=== PATIENT | male | born 1985 | race Caucasian/White ===

== ENCOUNTER 2016-10-13 03:19 | Emergency (ER) | payer OTHER ==
[~2016-10-13] VITALS: Ht 167.6 cm; Wt 96.0 kg
[~2016-10-13 03:19] MED LIST: CLEOCIN300 MG PO; LANSOPRAZOLE30 MG; NOHOMEMEDS; PREDNISONE50 MG PO; ZANTAC150 MG PO; ZYRTEC10 M1 PO
[2016-10-13] MEDS ORDERED: INDOCIN50 MG PO (04:50)
[2016-10-13 04:57] VITALS: BP 137/86
== END 2016-10-13 05:00 | disposition home or self-care (01) ==
LOC: EME 03:19
DX: S63.612A Unspecified sprain of right middle finger, initial encounter (principal); S63.502A Unspecified sprain of left wrist, initial encounter; V18.0XXA Pedal cycle driver injured in noncollision transport accident in nontraffic accident, initial encounter; Y93.55 Activity, bike riding
CPT/HCPCS: 73110; 73130; 99281; 99283